=== PATIENT | male | born 1940 | race Caucasian/White ===

== ENCOUNTER 2017-11-18 11:26 | Outpatient (CLI) | payer MEDICARE ==
[2017-11-18 13:25] LABS: #Eosinphils 0.4 thou/uL (0.0-0.7); #Lymphocytes 1.7 thou/uL (1.20-3.40); #Monocytes 0.5 thou/uL (0.11-0.59); #Neutrophils 3.1 thou/uL (1.40-6.50); %Basophils 0.5 % (0.0-1.0); %Eosinophils 7.5 % (0.0-10.0); %Lymphocytes 29.6 % (21.0-51.0); %Monocytes 8.1 % (0.0-10.0); %Neutrophils 54.3 % (42.0-75.0); Hemoglobin 15.1 g/dL (14.0-18.0); Mean Corpuscular HGB CONC 34.4 g/dL (32.0-36.0); Mean Corpuscular Hemoglobin 30.8 pg (27.0-31.0); Mean Corpuscular Volume 89.5 fl (80.0-94.0); Mean Platelet Volume 6.1 fL (7.4-10.4); Platelet Count 161 thou/uL (130-400); RBC Distribution Width 11.3 % (11.5-14.5); White Blood Cell (WBC) Count 5.7 thou/uL (4.8-10.8)
--- NOTE | 2017-11-18 13:42 | RAD ---
CHEST 2 VIEWS: Date: 11/18/17 HISTORY: Preop. COMPARISON: 07/21/07. FINDINGS: Cardiac silhouette and pulmonary vasculature are unremarkable. Mediastinum is midline. There is no co nfluent air space consolidation, pneumothorax, or pleural fluid evident. Degenerative changes involve the thoracic spine on the lateral view. IMPRESSION: No active cardiopulmonary abnormalities are demonstrated. POS: [facility]
[2017-11-18 13:53] LABS: Anion Gap 12 mmol/L (10-20); BUN (Urea Nitrogen) 13 mg/dL (8.4-25.7); Calc. Creatinine Clearance 0 mL/min (70-130); Calcium 9.2 mg/dL (7.8-10.44); Carbon Dioxide 25 mmol/L (23-31); Chloride 105 mmol/L (98-107); Estimated GFR-MDRD 79; Glucose 81 mg/dL (83-110); Potassium 4.4 mmol/L (3.5-5.1); Sodium 138 mmol/L (136-145)
[2017-11-18 17:09] LABS: ALT (SGPT) 16 U/L (8-55); AST (SGOT) 19 U/L (5-34); Albumin 4.2 g/dL (3.4-4.8); Alkaline Phosphatase 77 U/L (40-150); Bilirubin, Total 0.7 mg/dL (0.2-1.2); Globulin 2.5 g/dL (2.4-3.5); Protein, Total 6.7 g/dL (5.8-8.1)
== END 2017-11-18 11:27 | disposition home or self-care (01) ==
LOC: LABBT 11:26
PROVIDERS: ATTEND Specialist
DX: Z01.818 Encounter for other preprocedural examination (principal); K80.20 Calculus of gallbladder without cholecystitis without obstruction
CPT/HCPCS: 71046; 80053; 85025; 93005; 93010

== ENCOUNTER 2017-11-22 08:18 | Day surgery (SDC) | payer MEDICARE ==
[2017-11-18 12:14] VITALS: BMI 25.7
[2017-11-22] MEDS ORDERED: Ketorolac Tromethamine 30 MG/ML VIAL ONE (09:09)
[2017-11-22] MEDS ORDERED: CEFAZOLIN/Water 2 GM/20 ML SYRINGE ONE (09:09)
[2017-11-22] MEDS ORDERED: Fentanyl 100 MCG/2 ML VIAL ONE ×3 (10:47→12:42)
[2017-11-22] MEDS ORDERED: Lidocaine 2% w/Epinephrine 1:200K 20 ML VIAL ONE (10:48)
[2017-11-22] MEDS ORDERED: Bupivacaine 0.25% HCL 30 ML VIAL ONE (10:48)
[2017-11-22] MEDS ORDERED: hydrALAZINE 20 MG/ML VIAL ONE (11:41)
[2017-11-22] MEDS ORDERED: Metoclopramide HCl 10 MG/2 ML VIAL ONE (13:11)
[2017-11-22] MEDS ORDERED: Propofol 200 MG/20 ML VIAL ONE (13:11)
[2017-11-22] MEDS ORDERED: Ondansetron HCl/PF 4 MG/2 ML Vial ONE (13:11)
[2017-11-22] MEDS ORDERED: Glycopyrrolate 0.2 MG/ML 5 ML SYRINGE ONE (13:11)
[2017-11-22] MEDS ORDERED: diphenhydrAMINE 50 MG/ML VIAL ONE (13:11)
[2017-11-22] MEDS ORDERED: Lidocaine 1% PF 5 ML VIAL ONE (13:11)
[2017-11-22] MEDS ORDERED: Dexamethasone 20 MG/5 ML VIAL ONE (13:11)
--- NOTE | 2017-11-22 13:15 | OP ---
DATE OF PROCEDURE: 11/22/2017 PREOPERATIVE DIAGNOSIS: Symptomatic cholelithiasis. POSTOPERATIVE DIAGNOSIS: Symptomatic cholelithiasis. PROCEDURE: Laparoscopic cholecystectomy. SURGEON: Javier Paul M.D. ANESTHESIA: General endotracheal. INDICATIONS: The patient is a 77-year-old white male with symptoms referable to his gallbladder and ultrasound proven cholelithiasis. PROCEDURE IN DETAIL: Informed consent was obtained. The patient was taken to the operating room whe re general endotracheal anesthesia was obtained with the patient in the supine position. The abdomen was prepped with Betadine and draped in the usual sterile fashion. Quarter percent Marcaine with ep inephrine was infiltrated below the umbilicus and a 10 mm infraumbilical incision was created. A Ivan ess needle was passed through this incision into the peritoneal cavity. A pneumoperitoneum was estab lished using carbon dioxide up to a pressure of 15 mmHg. Local anesthetic was infiltrated and three additional 5 mm right upper quadrant incisions were created. Through the mid incision, a 5 mm port w as passed into the peritoneal cavity. The camera was passed through this port and under direct visio n, an 11 port is passed through the infraumbilical incision. The camera was replaced through this port, and under dir ect vision, two additional 5 mm ports were passed through the incisions already created. The gallbladder was grasped and retracted in a cephalad direction. Minimal adhesions were bluntly st ripped away from the apex of the gallbladder, and the apex was retracted laterally and inferiorly. C areful dissection was carried out to the apex of the gallbladder to identify the cystic duct and cyst ic artery. These were each carefully dissected circumferentially. The duct was of normal caliber. Both the duct and the artery were divided between clips leaving two on the side to remain within the abdomen. The gallbladder was then dissected out of the gallbladder fossa using electrocautery and re moved through the infraumbilical port site. The fascia was closed with 0 Vicryl suture and a GraNee needle. The right upper quadrant was inspected and irrigated. All irrigant was aspirated. All port s and instruments were removed under direct vision. Pneumoperitoneum was carefully evacuated. Addit ional local anesthetic was infiltrated into each port site. The skin edges were approximated with 4- 0 Monocryl subcuticular sutures, and Dermabond was placed externally. There were no complications. The patient tolerated the procedure well and was taken to the Recovery Room in stable condition. FINDINGS: The patient's gallbladder was without any pericholecystic inflammation. The duct was smal l and noninflamed. Cholangiogram was not performed. There were no other intra-abdominal abnormaliti es noted. There were no complications. The patient tolerated the procedure well.
== END 2017-11-22 14:00 | disposition home or self-care (01) ==
LOC: SDC 08:18
PROVIDERS: ATTEND Specialist
PROC: 0FT44ZZ Resection of Gallbladder, Percutaneous Endoscopic Approach (ICD-10-PCS; principal; 2017-11-22)
DX: K81.1 Chronic cholecystitis (principal); Z88.7 Allergy status to serum and vaccine; Z98.890 Other specified postprocedural states
CPT/HCPCS: 88304; 96374; J0131; J0360; J1885; J3010; S0020

== ENCOUNTER 2017-11-25 23:04 | Inpatient (IN) | payer MEDICARE ==
[2017-11-25 23:37] LABS: #Eosinphils 0.3 thou/uL (0.0-0.7); #Lymphocytes 1.3 thou/uL (1.20-3.40); #Monocytes 0.6 thou/uL (0.11-0.59); #Neutrophils 4.9 thou/uL (1.40-6.50); %Basophils 0.7 % (0.0-1.0); %Eosinophils 4.2 % (0.0-10.0); %Neutrophils 69.1 % (42.0-75.0); Hemoglobin 14.7 g/dL (14.0-18.0); Mean Corpuscular HGB CONC 35.1 g/dL (32.0-36.0); Mean Corpuscular Hemoglobin 31.7 pg (27.0-31.0); Mean Corpuscular Volume 90.3 fl (80.0-94.0); Mean Platelet Volume 5.9 fL (7.4-10.4); Platelet Count 156 thou/uL (130-400); RBC Distribution Width 11.4 % (11.5-14.5); Red Blood Cell (RBC) Count 4.65 mill/uL (4.70-6.10)
[2017-11-25] MEDS ORDERED: Lidocaine Viscous Sol 2% 15 ml UD Cup ONE (23:50)
[2017-11-25] MEDS ORDERED: Mag-Al 1200 mg/1200 mg/30 ML UDCUP ONE (23:50)
[2017-11-26 00:04] LABS: ALT (SGPT) 23 U/L (8-55); AST (SGOT) 21 U/L (5-34); Alkaline Phosphatase 69 U/L (40-150); Anion Gap 11 mmol/L (10-20); BUN (Urea Nitrogen) 13 mg/dL (8.4-25.7); Bilirubin, Total 0.7 mg/dL (0.2-1.2); Calc. Creatinine Clearance 0 mL/min (70-130); Calcium 9.9 mg/dL (7.8-10.44); Carbon Dioxide 28 mmol/L (23-31); Chloride 102 mmol/L (98-107); Estimated GFR-MDRD 72; Globulin 2.7 g/dL (2.4-3.5); Glucose 113 mg/dL (83-110); Potassium 4.1 mmol/L (3.5-5.1); Protein, Total 6.7 g/dL (5.8-8.1); Sodium 137 mmol/L (136-145)
[2017-11-26 00:10] LABS: CKMB 4.8 ng/mL (0-6.6)
[2017-11-26] MEDS ORDERED: Pantoprazole 40 MG VIAL ONE (00:13)
[2017-11-26] MEDS ORDERED: Morphine 4 MG/ML Carpuject ONE (00:13)
[2017-11-26] MEDS ORDERED: Ondansetron HCl/PF 4 MG/2 ML Vial ONE (00:13)
--- NOTE | 2017-11-26 00:13 | RAD ---
CHEST ONE VIEW 11/25/17 HISTORY: Chest pain. Indigestion. COMPARISON: None. FINDINGS: Portable upright chest: Normal cardiac silhouette. Pulmonary vessels and hilum are normal. No mass. No consolidation. No pneu mothorax or osseous abnormality. IMPRESSION: No acute cardiopulmonary process. POS: [facility]
[2017-11-26 00:27] LABS: Lipase 16 U/L (8-78)
[2017-11-26 00:28] LABS: CK (CPK) 135 U/L (30-200)
[2017-11-26] MEDS ORDERED: Enoxaparin Sodium 80 MG/0.8 ML SYRINGE ONE (00:33)
[2017-11-26] MEDS ORDERED: Nitroglycerin 0.4 MG TAB (25 Tab Bottle) ONE (00:33)
[2017-11-26 03:44] LABS: Troponin I 0.612 ng/mL (< 0.028)
[2017-11-26] MEDS ORDERED: Nitroglycerin 2% Ointment 1 INCH/1 GM Packet ONE (03:49)
[2017-11-26] MEDS ORDERED: Ondansetron ODT 4 MG TAB SL PRN (04:54)
[2017-11-26] MEDS ORDERED: Ondansetron HCl/PF 4 MG/2 ML Vial IVP PRN ×2 (04:54→20:46)
[2017-11-26] MEDS ORDERED: Morphine 5 MG/ML SYRINGE SLOW IVP PRN ×2 (04:55→13:43)
[2017-11-26 05:18] VITALS: BMI 25.7
[2017-11-26] MEDS ORDERED: Nitroglycerin 2% Ointment 1 INCH/1 GM Packet TOP SCH (06:00)
[2017-11-26] MEDS ORDERED: Acetaminophen 325 MG TAB PO PRN (06:30)
[2017-11-26 06:33] LABS: Troponin I 1.357 ng/mL (< 0.028)
[2017-11-26] MEDS: Enoxaparin Sodium 80 MG/0.8 ML SYRINGE SC SCH ×2 (09:54→11:57)
[2017-11-26] MEDS ORDERED: Nitroglycerin 100MG/250ML BOT 250 ML ONE (11:23)
[2017-11-26] MEDS ORDERED: Heparin 10,000 UNITS/1 ML VIAL ONE (11:23)
[2017-11-26] MEDS ORDERED: Iopamidol 370 76% 100 ML VIAL ONE (11:51)
[2017-11-26] MEDS ORDERED: Iopamidol 370 76% 50 ML VIAL FS ONE (11:51)
[2017-11-26] MEDS ORDERED: Verapamil 5 MG/2 ML VIAL ONE (12:43)
[2017-11-26] MEDS ORDERED: TICAGRELOR 90 MG TABLET ONE (12:52)
[2017-11-26] MEDS ORDERED: Zolpidem Tartrate 5 MG TAB PO PRN (13:23)
[2017-11-26] MEDS ORDERED: Nitroglycerin 0.4 MG TAB 1 EACH SL PRN (13:23)
[2017-11-26 14:13] LABS: Troponin I 3.027 ng/mL (< 0.028)
--- NOTE | 2017-11-26 20:14 | HP ---
DATE OF ADMISSION: 11/26/2017 ADMITTING PHYSICIAN: Marco Antonio Remy M.D. CHIEF COMPLAINT: Chest pain. HISTORY OF PRESENT ILLNESS: The patient is a 77-year-old gentleman who presented complaining of a pr essure/pain in the epigastric area. The patient recently had a cholecystectomy done laparoscopically on 11/22/2017. The patient reports that the heaviness and pain started in his chest after he exerted himself. There was a slight relief with the expelling of gas. The patient reports that t he pain intermittently radiates to his neck. He also reports weakness. He denies diaphoresis, short ness of breath, fever, chills, nausea, vomiting. He does report that he has had feelings with GERD i n the past but that this feels somewhat different. REVIEW OF SYSTEMS: The following complete review of systems was negative, unless otherwise mentioned in the HPI or below: Constitutional: Weight loss or gain, sense of well-being, ability to conduct usual activities, exerc ise tolerance. Skin/Breast: Rash, itching, changes in hair growth or loss, nail changes, breast lumps, tenderness, swelling, nipple discharge. Eyes: Vision, double vision, tearing, blind spots, pain. ENT/Mouth: Headaches (location, time of onset, duration, precipitating factors), vertigo, lightheade dness, injury. Vision, double vision, tearing, blind spots, pain, nose bleeding, colds, obstruction, discharge, dental difficulties, gingival bleeding, dentures, neck stiffness, pain, tenderness, masses in thyroid or other areas. Cardiovascular: Precordial pain, substernal distress, palpitations, syncope, dyspnea on exertion, or thopnea, nocturnal paroxysmal dyspnea, edema, cyanosis, hypertension, heart murmurs, varicosities, ph lebitis, claudication. Respiratory: Pain, shortness of breath, wheezing, stridor, cough, hemoptysis, fever or night sweats. Gastrointestinal: Poor appetite, dysphagia, indigestion, abdominal pain, heartburn, eructation, naus ea, vomiting, hematemesis, jaundice, constipation, or diarrhea, abnormal stools (radha-colored, tarry, bloody, greasy, foul smelling), flatulence, hemorrhoids, recent changes in bowel habits. Genitourinary: Urgency, frequency, dysuria, nocturia, hematuria, polyuria, oliguria, unusual (or mejia nge in) color of urine, stones, hesitancy, change in the size of stream, dribbling, acute retention o r incontinence, libido, potency. Musculoskeletal: Pain, swelling, redness or heat of muscles or joints, limitation, of motion, muscul ar weakness, atrophy, cramps. Neurologic/Psychiatric: Convulsions, paralyses, tremor, incoordination, paresthesias, difficulties w ith memory of speech, sensory or motor disturbances, or muscular coordination (ataxia, tremor), emoti onal problems, anxiety, depression, previous psychiatric care, unusual perceptions, hallucinations. Allergy/Immunologic: Skin rash, anemia, bleeding tendency, polydipsia, polyuria, intolerance to heat or cold. PAST MEDICAL HISTORY: No significant past medical history. PAST SURGICAL HISTORY: Significant for right shoulder surgery and a laparoscopic cholecystectomy. PSYCHIATRIC HISTORY: No previous psychiatric history. SOCIAL HISTORY: Denies alcohol, denies drug, stopped smoking over 20 years ago. HOME MEDICATIONS: Include Ambien 10 mg at bedtime. DRUG ALLERGIES: He is allergic to PNEUMOCOCCAL VACCINE and INFLUENZA VACCINE. FAMILY HISTORY: Reviewed and noncontributory. PHYSICAL EXAMINATION: VITAL SIGNS: Blood pressure 119/62, pulse 48, respirations 18, temperature 98.2, pain 0/10, satting 97% on room air. GENERAL: He is in no acute distress, very pleasant, cooperative. HEAD: Normocephalic, atraumatic. EYES: PERRL. Extraocular muscles are intact. ENT: Ears normal. Mouth normal. Nose exam normal. NECK: Supple, full range of motion. Trachea midline. CHEST: Clear to auscultation, no rhonchi, no wheezing. CARDIOVASCULAR: Regular rate and rhythm, no murmurs, regurg, or gallops. ABDOMEN: Nontender, nondistended. Positive bowel sounds. EXTREMITIES: No clubbing, cyanosis, or edema. SKIN: There are healing surgical scars in the abdominal area, otherwise skin is warm, dry, normal in color. NEUROLOGIC: Full range of motion of all extremities. Cranial nerves II through XII grossly intact. LABORATORY DATA AND IMAGES: CBC shows a white count of 7.0, hemoglobin 14.7, hematocrit 42.0, platel ets 156. Coag studies: Clotting time of 268. Chemistry: Sodium 137, potassium 4.1, chloride 102, CO2 28, BUN 13, creatinine 1.00, glucose 113, calcium 9.9, AST 21, ALT 23, alkaline phosphatase 69. CK 135, CK-MB 4.8, troponin I first measurement 0.26, second study 0.61, third study 1.35, and the fo urth study 3.02. Lipase 16. Chest x-ray shows no acute cardiopulmonary process. ASSESSMENT AND PLAN: 1. Skk-[id number]-ewsnmak elevation myocardial infarction. 2. Coronary artery disease, status post percutaneous transluminal coronary angioplasty with stent. PLAN: The patient admitted to telemetry. Cardiology service has seen the patient and performed an a ngiogram. A stent was placed in an obtuse marginal coronary artery. The patient reportedly is sympt om-free but will follow up with Cardiology for additional treatment. We will provide supportive ther apy during his stay here and follow per Cardiology.
[2017-11-26 20:24] LABS: Troponin I 3.136 ng/mL (< 0.028)
[2017-11-26] MEDS ORDERED: Ondansetron ODT 4 MG TAB PO PRN (20:46)
[2017-11-26] MEDS ORDERED: Mag-Al 1200 mg/1200 mg/30 ML UDCUP PO PRN (20:46)
[2017-11-26] MEDS ORDERED: Calcium Carbonate 500 MG ChewTAB PO PRN (20:46)
[2017-11-26] MEDS ORDERED: Atorvastatin Calcium 20 MG TAB PO SCH (21:00)
[2017-11-26] MEDS: Carvedilol 3.125 MG TAB PO SCH (21:16)
[2017-11-26] MEDS: TICAGRELOR 90 MG TABLET PO SCH (21:16)
--- NOTE | 2017-11-27 01:20 | CON ---
DATE OF CONSULTATION: 11/26/2017 INDICATION FOR CONSULTATION: This is a 77-year-old patient with new-onset chest pain and abnormal ca rdiac enzymes. HISTORY OF PRESENT ILLNESS: This is a very pleasant 77-year-old gentleman who presented to the emerg ency room earlier today after he had been having some chest discomfort yesterday evening. He said th e chest pain radiated to his jaw. He originally thought it was indigestion. He then noticed that he did try to ambulate somewhat; with ambulation, the pain worsened. He presented to the emergency dima after calling the surgical department after he had recently undergone, I believe on Tuesday, cholec ystectomy and thought perhaps he was just having indigestion. On arrival to the emergency room, he w as found to have a right bundle-branch block with bradycardia. His cardiac enzymes were already abno rmal at 0.026 and now increased up to 0.612 and then up to 1.357 compatible with a non-ST segment shayne vation myocardial infarction. He did have further chest pain this morning when he was in the bed guillermina und 9:15 a.m. and with minimal exertion, he developed chest pain again. PAST MEDICAL HISTORY: Significant for hypercholesterolemia. He has had a cholecystectomy. He has r efused to have medications in the past. He has had a colon polypectomy. He has had a right rotator cuff repair. He has had a right cataract surgery. He has history of nephrolithiasis, history of gas troesophageal reflux disease. SOCIAL HISTORY: He has smoked in the past about a pack a day for 40 years and stopped about 20 years ago. Otherwise, his social history is unremarkable. He has no alcohol use. FAMILY HISTORY: Unremarkable for any early heart disease. ALLERGIES: He is allergic to PNEUMONIA and FLU SHOTS and also NEXIUM. REVIEW OF SYSTEMS: A 12-point review of systems is unremarkable except for arthritis of the left kne e, dyspepsia and what is noted. MEDICATIONS: In the emergency room, he was given nitroglycerin, Lovenox, morphine, aspirin, and perh aps I believe looks like he was given some other medication. PHYSICAL EXAMINATION: GENERAL: Reveals a well-developed, well-nourished gentleman who is in no acute distress at this time . VITAL SIGNS: Blood pressure is 108/65, heart rate is 52 and regular. He is afebrile. Respiratory r ate is 20. HEENT: Reveals the head to be normocephalic, atraumatic. Carotid pulses are present. I did not hea r any bruits. CHEST: Clear to auscultation without rales, rhonchi or wheezing. CARDIOVASCULAR: Heart sounds are very difficult to hear, very distant sounds. I did not hear any si gnificant murmurs, heaves, thrills, bruits or rubs. ABDOMEN: Soft and nontender. Positive bowel sounds are present. EXTREMITIES: Show no clubbing, cyanosis or edema. He has portal incision that is actually in the ab dominal area which has previous arthroscopic cholecystectomy. EXTREMITIES: Show no clubbing, cyanosis or edema. NEUROLOGIC: Patient is fully intact. He has normal strength, normal tone. No abnormalities were no gonzalez. SKIN: Warm and dry at this time. Please note also in the emergency room, he was given the sublingual nitroglycerin as well as the Love nox and morphine and Protonix. EKG shows a right bundle-branch block with a sinus bradycardia, heart rate in the 50s. IMPRESSION AND PLAN: Non-ST segment elevation myocardial infarction in a 77-year-old gentleman who r ecently underwent arthroscopic cholecystectomy. He continued to have episodes of chest discomfort. I would advise him to undergo urgent cardiac catheterization to evaluate his coronary artery status. I have explained the procedure and the risks to him to include bleeding, infection, possibly a myoca rdial infarction, cerebrovascular accident, renal insufficiency, allergic contrast reaction and even the possibility of . He understands and agrees to proceed. We will plan for urgent cardiac cat heterization this morning since the patient continues to have increasing cardiac enzymes compatible w ith a non-ST elevation myocardial infarction and continues to have episodes of chest discomfort which he rates at least 6/10.
[2017-11-27 05:38] LABS: #Eosinphils 0.2 thou/uL (0.0-0.7); #Monocytes 0.4 thou/uL (0.11-0.59); #Neutrophils 3.4 thou/uL (1.40-6.50); %Basophils 0.3 % (0.0-1.0); %Eosinophils 4.3 % (0.0-10.0); %Lymphocytes 19.3 % (21.0-51.0); %Monocytes 7.8 % (0.0-10.0); %Neutrophils 68.3 % (42.0-75.0); Mean Corpuscular HGB CONC 35.6 g/dL (32.0-36.0); Mean Corpuscular Hemoglobin 32.2 pg (27.0-31.0); Mean Corpuscular Volume 90.6 fl (80.0-94.0); Mean Platelet Volume 6.4 fL (7.4-10.4); Platelet Count 135 thou/uL (130-400); RBC Distribution Width 11.4 % (11.5-14.5); Red Blood Cell (RBC) Count 4.02 mill/uL (4.70-6.10); White Blood Cell (WBC) Count 4.9 thou/uL (4.8-10.8)
[2017-11-27 05:50] LABS: ALT (SGPT) 18 U/L (8-55); AST (SGOT) 29 U/L (5-34); Albumin 3.6 g/dL (3.4-4.8); Alkaline Phosphatase 56 U/L (40-150); Anion Gap 9 mmol/L (10-20); BUN (Urea Nitrogen) 11 mg/dL (8.4-25.7); Calc. Creatinine Clearance 77 mL/min (70-130); Calcium 8.9 mg/dL (7.8-10.44); Carbon Dioxide 26 mmol/L (23-31); Chloride 105 mmol/L (98-107); Estimated GFR-MDRD 78; Globulin 2.3 g/dL (2.4-3.5); Glucose 97 mg/dL (83-110); Potassium 4.1 mmol/L (3.5-5.1); Protein, Total 5.9 g/dL (5.8-8.1); Sodium 136 mmol/L (136-145)
[2017-11-27] MEDS ORDERED: Lisinopril 2.5 MG TAB PO SCH (09:00)
[2017-11-27] MEDS: Carvedilol 3.125 MG TAB PO SCH (09:03)
[2017-11-27] MEDS: TICAGRELOR 90 MG TABLET PO SCH (09:06)
[2017-11-27 12:13] VITALS: TEMP 98.2
--- NOTE | 2017-11-27 12:25 | PDOC.CTH ---
<Beverly Moreno - Last Filed: 11/27/17 12:21> Cardiology Progress Note - Subjective The pt seen and examined. No overnight events. No cardiac complaints. He walked with PT without any difficulties. - Objective Vital Signs Temp Pulse Resp BP Pulse Ox 11/27/17 12:00 98.2 F 58 L 16 121/61 98 11/27/17 08:00 97.6 F 69 18 136/65 95 11/27/17 03:27 100.3 F H 60 17 141/63 H 94 L Weight 180 lb 4 oz 11/26/17 11/27/17 11/28/17 06:59 06:59 06:59 Intake Total 0 240 Output Total 150 775 Balance -150 -535 - Physical Examination General/Neuro: alert & oriented x3 Lungs: CTA Heart: RRR Abdomen: soft Extremities: other: (No edema; no bleeding, hemamtoma, or oozing from Lt wrist) - Telemetry Telemetry Rhythm: SR - Labs Result Diagrams: 11/27/17 05:03 11/27/17 05:03 Troponin/CKMB CK-MB (CK-2) 4.8 ng/mL (0-6.6) 11/25/17 23:28 Troponin I 3.136 ng/mL (< 0.028) H* 11/26/17 19:44 - Assessment/Plan 1. NSTEMI w/ S/p PCI x1 to OM1 - stable; on ANIL, BBlocker, ASA 81mg, Lipitor, and Brilinta 90mg BID; sample of Brilinta given to the pt 2. Hyperlipidemia - on Statin 3. GERD - stable 4. Ex-smoker, quit in 1997 MAR reviewed * From cardiac standpoint, the pt is stable to d/c home; The pt will f/u with Dr Martínez' office within 1-2 wks for another cardiac cath. Instructed to call/ visit the office/ER for any cardiac symptoms. * The medication at Discharge: Coreg 3.125mg BID, Lisinopril 2.5mg QD, ASA 81mg QD, Lipitor 20mg QD, Brilinta 90mg BID Review of Systems - Review of Systems Constitutional: reports: no symptoms reported EENTM: reports: no symptoms reported Respiratory: reports: no symptoms reported Cardiac (ROS): reports: no symptoms reported ABD/GI: reports: no symptoms reported : reports: no symptoms reported Musculoskeletal: reports: no symptoms reported Skin: reports: no symptoms reported <Janusz Martínez - Last Filed: 11/28/17 09:46> Cardiology Progress Note - Objective Weight 180 lb 4 oz 11/27/17 11/28/17 11/29/17 06:59 06:59 06:59 Intake Total 240 Output Total 775 Balance -535 - Labs Result Diagrams: 11/27/17 05:03 11/27/17 05:03 Troponin/CKMB CK-MB (CK-2) 4.8 ng/mL (0-6.6) 11/25/17 23:28 Troponin I 3.136 ng/mL (< 0.028) H* 11/26/17 19:44 - Assessment/Plan Pt. seen and eval. I agree with the A/P by the YAM CURER. Plan for further intervention to the diag and possibly the ramus in 2-3 weeks.
[2017-11-27 12:54] VITALS: BP 138/59
--- NOTE | 2017-11-27 20:50 | DIS ---
DATE OF ADMISSION: 11/26/2017. DATE OF DISCHARGE: 11/27/2017. PRIMARY DISCHARGE DIAGNOSES: 1. Rqy-UR-ivopbujic myocardial infarction. 2. Coronary artery disease. 3. Hypertension. HOSPITAL COURSE: The patient is a 77-year-old gentleman that had presented complaining of epigastric chest pain. The patient was noted to have elevated troponins beyond the indeterminate range. It wa s felt that he was undergoing a fhb-[id number]-qdrdqegw myocardial infarction. He was immediately taken to [facility], where he was treated by Dr. Maynor Martínez. Successful PCI with insertion of a drug-eluting stent was performed. This was placed in the proximal first obtuse marginal coronary artery. The pat ient's ejection fraction was 55%. There were some inferior hypokinesis. DISCHARGE DISPOSITION: To home with home health. DISCHARGE DIET: Cardiac healthy. DISCHARGE MEDICATIONS: The patient was discharged on lisinopril 2.5 mg every day, Coreg 3.125 mg b.i .d., aspirin 81 mg every day, Lipitor 20 mg p.o. at bedtime, Brilinta 90 mg b.i.d. DISCHARGE ACTIVITY: As tolerated. PHYSICAL EXAMINATION: GENERAL: No acute distress. HEAD: Normocephalic, atraumatic. EYES: PERRL. Extraocular muscles intact. LUNGS: Clear to auscultation. CARDIAC: Regular rate and rhythm. ABDOMEN: Nontender, nondistended. EXTREMITIES: No clubbing, cyanosis, or edema. CONSULTANTS: Dr. Martínez, Cardiology. PROCEDURE: Angiogram. FOLLOWUP: The patient is to follow up with Dr. Martínez within 2 weeks. The patient is also to follow u p in cardiac rehabilitation and to see his PCP within 1 week.
--- NOTE | 2017-12-03 13:44 | EKG ---
Test Reason : Blood Pressure : / mmHG Vent. Rate : 054 BPM Atrial Rate : 054 BPM P-R Int : 202 ms QRS Dur : 164 ms QT Int : 444 ms P-R-T Axes : 079 046 044 degrees QTc Int : 421 ms Sinus bradycardia Right bundle branch block Abnormal ECG Confirmed by GUNNER AGUILAR ([id number]), mapping editor PARVEZ ROCHA ([id number]) on 12/03/2017 1:44:10 PM Referred By: Confirmed By:GUNNER AGUILAR
== END 2017-11-27 16:16 | disposition home health service (06) | DRG 247 ==
LOC: ERS 23:04 → 2NO 11-26 04:29
PROVIDERS: ADMIT Hospitalist; ATTEND Hospitalist
PROC: 4A023N7 Measurement of Cardiac Sampling and Pressure, Left Heart, Percutaneous Approach (ICD-10-PCS; principal; 2017-11-26)
PROC: 027034Z Dilation of Coronary Artery, One Artery with Drug-eluting Intraluminal Device, Percutaneous Approach (ICD-10-PCS; 2017-11-26)
PROC: B2111ZZ Fluoroscopy of Multiple Coronary Arteries using Low Osmolar Contrast (ICD-10-PCS; 2017-11-26)
PROC: B2151ZZ Fluoroscopy of Left Heart using Low Osmolar Contrast (ICD-10-PCS; 2017-11-26)
DX: I21.4 Non-ST elevation (NSTEMI) myocardial infarction (principal); I45.10 Unspecified right bundle-branch block; E78.00 Pure hypercholesterolemia, unspecified; I25.119 Atherosclerotic heart disease of native coronary artery with unspecified angina pectoris; Z90.49 Acquired absence of other specified parts of digestive tract; Z88.7 Allergy status to serum and vaccine; K21.9 Gastro-esophageal reflux disease without esophagitis; Z87.891 Personal history of nicotine dependence; M17.12 Unilateral primary osteoarthritis, left knee
CPT/HCPCS: 36415; 71045; 80053; 82550; 82553; 83690; 84484; 85025; 85347; 92928; 93005; 93010; 93458; 93798; 94760; 96361; 96372; 96374; 96375; J2270; A4216; C1725; C1769; C1874; C1887; C9113; C9600; J1644; J1650; J2405

== ENCOUNTER 2018-07-25 10:50 | Outpatient (CLI) | payer MEDICARE ==
--- NOTE | 2018-07-25 14:14 | CT ---
CT ANGIOGRAM NECK: HISTORY: Carotid bruit. Evaluate for stenosis. COMPARISON: None. TECHNIQUE: CT angiogram of the neck is performed in the axial plane. Three-dimensional reformatted images are s ubmitted for interpretation. FINDINGS: The visualized brain parenchyma is unremarkable. The calvarium is intact. Adequate aeration of the visualized sinuses and mastoid air cells. Bilateral globes are intact. The retrobulbar fat is preserved. Symmetric attenuation of the optic n erves and ocular rectus muscles. The right ocular lens implant is appropriately located. [place] left ocular lens is unremarkable. The aerodigestive tract is patent. No mucosal abnormality. Midline fatty [place] of the tongue is pre served. The epiglottis has a normal caliber. Pre-epiglottic fat is preserved. No prevertebral soft tissue swelling. Symmetric attenuation of the parotid and submandibular glands. The sternocleidomastoid muscles are u nremarkable. No evidence of lymphadenopathy by size criteria. The upper mediastinum is unremarkable. Emphysematous changes in the lung apices. Cervical spine vertebral body height is maintained. There is no fracture. Anterolisthesis of C3 upo n C4 and retrolisthesis of C5 upon C6. There are varying degrees of central canal stenosis and neura l foraminal narrowing on the basis of degenerative change. Moderate central canal stenosis at C4-C5, C5-C6, and C6-C7. CT ANGIOGRAM: The aortic arch has an overall normal caliber. RIGHT CAROTID: The right carotid artery origin, the carotid bifurcation, and the internal carotid ar rosita have appropriate enhancement and luminal diameter. Minimal atherosclerosis in the right carotid bifurcation. There is a small ulcerative plaque along the posterolateral aspect of the proximal righ t internal carotid artery, measuring 0.3 cm. Mild irregularity involving the proximal right internal carotid artery is noted. There is no significant stenosis based upon NASCET criteria. LEFT CAROTID: The left carotid artery origin has appropriate enhancement and luminal diameter. Ther e is atherosclerotic disease without significant stenosis in the left carotid bifurcation. The left internal carotid artery has appropriate enhancement and luminal diameter. There is no significant st enosis based upon NASCET criteria. Bilateral subclavian arteries are patent. Bilateral cervical vertebral arteries are patent throughou t their course in the neck. The vertebral arteries are essentially co-dominant. IMPRESSION: 1. Focal ulceration involving the posterolateral proximal right internal carotid artery. Consider a cardiovascular surgical consultation. 2. No evidence of significant stenosis based upon NASCET criteria. POS: [facility]
== END 2018-07-25 10:51 | disposition home or self-care (01) ==
LOC: BICCT 10:50
PROVIDERS: ATTEND Internal Medicine Cardiovascular Disease
DX: I25.10 Atherosclerotic heart disease of native coronary artery without angina pectoris (principal); I77.89 Other specified disorders of arteries and arterioles
CPT/HCPCS: 70498; 82565

== ENCOUNTER 2020-01-04 12:20 | Outpatient (CLI) | payer MEDICARE ==
--- NOTE | 2020-01-04 14:24 | MRI ---
LEFT KNEE MRI WITHOUT IV CONTRAST: HISTORY: Left knee pain. FINDINGS: Multiplanar, multisequence MRI examination of the left knee is performed. There is abnormal oblique and linear horizontal high signal involving the medial meniscus from near the posterior root into the mid body, evidence for a somewhat complex tear including a horizontal component. The lateral menisc us appears unremarkable. There is some minimal to moderate fluid in the suprapatellar recess. There is evidence for some irregular patellar cartilage loss, evidence for chondromalacia patella with claudia e full-thickness or near full-thickness fissures. The lateral meniscus appears unremarkable. The an terior and posterior cruciate ligaments, collateral ligament complexes, and quadriceps and patellar t endons appear intact. There is flattening of the superior trochlear groove as well as a somewhat yashira ngated flattened lateral patellar facet, evidence for some patellar trochlear dysplasia with borderli ne lateral patellar subluxation. No evidence for significant abnormal fat stranding within the super ior aspect of Hoffa's fat that would suggest patellar tendon lateral femoral condyle friction syndrom e. IMPRESSION: Complex medial meniscal tear. 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 Some distention of the suprapatellar recess. POS: [facility]
== END 2020-01-04 12:21 | disposition home or self-care (01) ==
LOC: BICMRI 12:20
PROVIDERS: ATTEND Orthopaedic Surgery
DX: M25.562 Pain in left knee (principal); S83.232A Complex tear of medial meniscus, current injury, left knee, initial encounter; M22.42 Chondromalacia patellae, left knee; M22.8X2 Other disorders of patella, left knee

== ENCOUNTER 2022-05-21 11:14 | Outpatient (CLI) | payer MEDICARE | END 2022-05-21 11:15 | disposition home or self-care (01) | LOC: CTENTCT 11:14 | PROVIDERS: ATTEND Student in an Organized Health Care Education/Training Program | DX: J32.9 Chronic sinusitis, unspecified (principal) | CPT/HCPCS: 70486 ==

== ENCOUNTER 2022-10-24 15:25 | Emergency (ER) | payer MEDICARE, OTHER | END 2022-10-24 16:55 | disposition home or self-care (01) | LOC: ERS 15:25 | DX: H66.91 Otitis media, unspecified, right ear (principal); H73.91 Unspecified disorder of tympanic membrane, right ear; Z87.891 Personal history of nicotine dependence | CPT/HCPCS: 99282 ==

== ENCOUNTER 2023-07-08 09:20 | Outpatient (CLI) | payer OTHER ==
[2023-07-08 12:01] LABS: #Eosinphils 0.4 10x3/uL (0.0-0.5); #Monocytes 0.5 10x3/uL (0.0-1.1); #Neutrophils 4.2 10x3/uL (1.5-8.4); %Basophils 0.6 % (0.0-2.0); %Eosinophils 5.7 % (0.0-6.0); %Lymphocytes 20.5 % (18.0-47.0); %Monocytes 7.9 % (0.0-10.0); %Neutrophils 64.8 % (40.0-75.0); Hematocrit 43.6 % (38.8-50.0); Hemoglobin 14.8 g/dL (13.5-17.5); Mean Corpuscular HGB CONC 33.9 g/dL (32.0-36.0); Mean Corpuscular Hemoglobin 30.3 pg (27.0-33.0); Mean Corpuscular Volume 89.2 fl (81.2-95.1); Mean Platelet Volume 9.4 fl (7.4-10.4); Platelet Count 160 10x3/uL (150-450); RBC Distribution Width 12.5 % (11.5-14.5); Red Blood Cell (RBC) Count 4.89 10x6/uL (4.32-5.72); White Blood Cell (WBC) Count 6.5 10x3/uL (3.5-10.5)
[2023-07-08 12:49] LABS: Anion Gap 15 mmol/L (10-20); BUN (Urea Nitrogen) 19 mg/dL (8.4-25.7); Calc. Creatinine Clearance 0 mL/min (70-130); Calcium 9.1 mg/dL (7.8-10.44); Carbon Dioxide 21 mmol/L (23-31); Chloride 107 mmol/L (98-107); Estimated GFR 56; Glucose 90 mg/dL (83-110); Potassium 4.8 mmol/L (3.5-5.1); Sodium 138 mmol/L (136-145)
== END 2023-07-08 09:21 | disposition home or self-care (01) ==
LOC: LABBT 09:20
PROVIDERS: ATTEND Orthopaedic Surgery
DX: Z01.818 Encounter for other preprocedural examination (principal); S83.242A Other tear of medial meniscus, current injury, left knee, initial encounter
CPT/HCPCS: 80048; 85025; 93005; 93010

== ENCOUNTER 2023-07-13 09:19 | Day surgery (SDC) | payer OTHER ==
[2023-07-08 10:23] VITALS: BMI 28.4
[2023-07-13] MEDS ORDERED: CEFAZOLIN 2 GM VIAL ONE (10:19)
[2023-07-13] MEDS ORDERED: Sodium Chloride 0.9% 100 ML ONE (10:19)
[2023-07-13] MEDS ORDERED: PROPOFOL 20 ML ONE (10:22)
[2023-07-13] MEDS ORDERED: Lidocaine 2% PF 5 ML VIAL ONE (10:22)
[2023-07-13] MEDS ORDERED: Bupivacaine PF 0.5% 30 ML VIAL ONE (10:22)
[2023-07-13] MEDS ORDERED: Glycopyrrolate 0.2 MG/ML 5 ML SYRINGE ONE (11:01)
[2023-07-13] MEDS ORDERED: Ondansetron PF 4 MG/2 ML Vial ONE ×2 (11:01→11:27)
[2023-07-13] MEDS ORDERED: Lidocaine 1% PF 5 ML VIAL ONE (11:01)
[2023-07-13] MEDS ORDERED: Bupivacaine HCl 0.5%/Epinephrine 1:200,000/PF 30 ml Vial ONE (11:01)
[2023-07-13] MEDS ORDERED: PROPOFOL 200 MG/20 ML VIAL ONE (11:01)
[2023-07-13] MEDS ORDERED: fentaNYL 50 mcg/mL 1 mL Vial ONE (11:27)
[2023-07-13] MEDS ORDERED: HYDROcodone/Acetaminophen 5/325 mg Tablet ONE (12:45)
== END 2023-07-13 14:17 | disposition home or self-care (01) ==
LOC: SDC 09:19
PROVIDERS: ATTEND Orthopaedic Surgery
PROC: 0SBD4ZZ Excision of Left Knee Joint, Percutaneous Endoscopic Approach (ICD-10-PCS; principal; 2023-07-13)
DX: S83.207A Unspecified tear of unspecified meniscus, current injury, left knee, initial encounter (principal); I25.10 Atherosclerotic heart disease of native coronary artery without angina pectoris; E78.5 Hyperlipidemia, unspecified; J44.9 Chronic obstructive pulmonary disease, unspecified; M19.90 Unspecified osteoarthritis, unspecified site; G47.00 Insomnia, unspecified; H46.9 Unspecified optic neuritis; Z98.890 Other specified postprocedural states; Z90.49 Acquired absence of other specified parts of digestive tract; Z87.891 Personal history of nicotine dependence; Z88.8 Allergy status to other drugs, medicaments and biological substances; Z79.82 Long term (current) use of aspirin; Z88.5 Allergy status to narcotic agent; Z79.899 Other long term (current) drug therapy; X58.XXXA Exposure to other specified factors, initial encounter
CPT/HCPCS: 29881; 97116; J3010; J2001; J2405; J2704; J3490; S0020

== ENCOUNTER 2025-08-02 10:48 | Outpatient (CLI) | payer OTHER | END 2025-08-02 10:49 | disposition home or self-care (01) | LOC: SCSRAD 10:48 | PROVIDERS: ATTEND Family Medicine | DX: R06.09 Other forms of dyspnea (principal); M54.6 Pain in thoracic spine | CPT/HCPCS: 36415; 71046; 80053; 83690; 85025; 85379 ==

== ENCOUNTER 2025-08-13 12:48 | Inpatient (IN) | payer OTHER ==
[~2025-08-13 12:48] MED LIST: Iopamidol-370 76% 500 ML MDV (1 ML CHARGE) ONE
[2025-08-13 14:00] LABS: #Basophils 0.08 10x3/uL (0.0-0.2); #Eosinophils 0.40 10x3/uL (0.0-0.7); #Monocytes 0.80 10x3/uL (0.11-0.59); #Neutrophils 8.47 10x3/uL (1.40-6.50); %Basophils 0.6 % (0.0-1.0); %Eosinophils 3.2 % (0.0-10.0); %Lymphocytes 21.3 % (21.0-51.0); %Monocytes 6.4 % (0.0-10.0); %Neutrophils 67.9 % (42.0-75.0); Hematocrit 46.8 % (42.0-52.0); Hemoglobin 14.9 g/dL (14.0-18.0); Mean Corpuscular Hemoglobin 29.4 pg (27.0-31.0); Mean Corpuscular Volume 92.5 fL (78.0-98.0); Platelet Count 188 10x3/uL (130-400); Red Blood Cell (RBC) Count 5.06 mill/uL (4.70-6.10); White Blood Cell (WBC) Count 12.47 10x3/uL (4.8-10.8)
[2025-08-13 14:33] LABS: ALT (SGPT) 19 U/L (Less than 45); AST (SGOT) 26 U/L (11-34); Albumin 4.5 g/dL (3.1-4.5); Alkaline Phosphatase 83 U/L (40-110); Anion Gap 17 mmol/L (10-20); BUN (Urea Nitrogen) 35 mg/dL (8.4-25.7); Bilirubin, Total 1.0 mg/dL (0.3-1.2); Calc. Creatinine Clearance 0 mL/min (70-130); Calcium 9.5 mg/dL (7.8-10.44); Carbon Dioxide 24 mmol/L (23-31); Chloride 105 mmol/L (98-107); Globulin 3.3 g/dL (2.4-3.5); Glucose 138 mg/dL (83-110); Potassium 5.2 mmol/L (3.5-5.1); Sodium 141 mmol/L (136-145)
[2025-08-13] MEDS ORDERED: CEFAZOLIN 2 GM VIAL ONE (15:31)
[2025-08-13] MEDS ORDERED: CEFAZOLIN 1 GM VIAL ONE (15:31)
[2025-08-13] MEDS ORDERED: Lidocaine 1% (PF) 30 ML VIAL ONE (15:54)
[2025-08-13] MEDS ORDERED: EPINEPHrine 1 MG/10 ML Abboject SYRINGE ONE (17:22)
[2025-08-13 18:03] LABS: Magnesium 2.4 mg/dL (1.6-2.6)
[2025-08-13 18:31] VITALS: BMI 28.5
[2025-08-13 20:49] LABS: Potassium 5.2 mmol/L (3.5-5.1)
[2025-08-13] MEDS: Rosuvastatin 20 MG TAB PO SCH (20:54)
[2025-08-13] MEDS: Carvedilol 3.125 MG TAB PO SCH (20:54)
[2025-08-13] MEDS: Gabapentin 400 MG CAP PO SCH (23:26)
[2025-08-14 05:16] LABS: Anion Gap 9 mmol/L (10-20); BUN (Urea Nitrogen) 37 mg/dL (8.4-25.7); Calc. Creatinine Clearance 46 mL/min (70-130); Calcium 8.6 mg/dL (7.8-10.44); Carbon Dioxide 24 mmol/L (23-31); Chloride 108 mmol/L (98-107); Glucose 121 mg/dL (83-110); Potassium 4.0 mmol/L (3.5-5.1); Sodium 137 mmol/L (136-145)
[2025-08-14] MEDS: Gabapentin 400 MG CAP PO SCH ×2 (09:06→21:04)
[2025-08-14] MEDS: Aspirin Chewable 81 MG TAB PO SCH (09:06)
[2025-08-14] MEDS ORDERED: hydrALAZINE 20 MG/ML VIAL SLOW IVP PRN (14:46)
[2025-08-14] MEDS: Acetaminophen 325 MG TAB PO PRN (16:48)
[2025-08-14] MEDS: Carvedilol 6.25 MG TAB PO SCH (20:30)
[2025-08-15 05:55] LABS: #Basophils 0.03 10x3/uL (0.0-0.2); #Eosinophils 0.26 10x3/uL (0.0-0.7); #Monocytes 0.47 10x3/uL (0.11-0.59); #Neutrophils 4.64 10x3/uL (1.40-6.50); %Basophils 0.5 % (0.0-1.0); %Eosinophils 4.0 % (0.0-10.0); %Lymphocytes 16.4 % (21.0-51.0); %Monocytes 7.3 % (0.0-10.0); %Neutrophils 71.6 % (42.0-75.0); Anion Gap 11 mmol/L (10-20); BUN (Urea Nitrogen) 23 mg/dL (8.4-25.7); Calc. Creatinine Clearance 65 mL/min (70-130); Calcium 8.6 mg/dL (7.8-10.44); Carbon Dioxide 24 mmol/L (23-31); Chloride 111 mmol/L (98-107); Glucose 100 mg/dL (83-110); Hematocrit 37.5 % (42.0-52.0); Hemoglobin 12.7 g/dL (14.0-18.0); Mean Corpuscular Hemoglobin 30.4 pg (27.0-31.0); Mean Corpuscular Volume 89.7 fL (78.0-98.0); Platelet Count 118 10x3/uL (130-400); Potassium 4.0 mmol/L (3.5-5.1); Red Blood Cell (RBC) Count 4.18 mill/uL (4.70-6.10); Sodium 142 mmol/L (136-145); White Blood Cell (WBC) Count 6.47 10x3/uL (4.8-10.8)
[2025-08-15 06:12] LABS: Platelet Adequacy Comment Platelets Decreased; RBC Morphology Within Normal Limits
[2025-08-15 11:34] VITALS: BP 153/72; TEMP 98.7
== END 2025-08-15 13:33 | disposition home or self-care (01) | DRG 243 ==
LOC: ERS 12:48 → CCL 16:28 → 2NO 18:11
PROVIDERS: ADMIT Internal Medicine Cardiovascular Disease; ATTEND Internal Medicine Cardiovascular Disease
PROC: 0JH606Z Insertion of Pacemaker, Dual Chamber into Chest Subcutaneous Tissue and Fascia, Open Approach (ICD-10-PCS; principal; 2025-08-13)
PROC: 02H63JZ Insertion of Pacemaker Lead into Right Atrium, Percutaneous Approach (ICD-10-PCS; 2025-08-13)
PROC: 02HK3JZ Insertion of Pacemaker Lead into Right Ventricle, Percutaneous Approach (ICD-10-PCS; 2025-08-13)
PROC: 3E03329 Introduction of Other Anti-infective into Peripheral Vein, Percutaneous Approach (ICD-10-PCS; 2025-08-13)
PROC: 3E033XZ Introduction of Vasopressor into Peripheral Vein, Percutaneous Approach (ICD-10-PCS; 2025-08-13)
DX: I44.2 Atrioventricular block, complete (principal); N17.9 Acute kidney failure, unspecified; R65.10 Systemic inflammatory response syndrome (SIRS) of non-infectious origin without acute organ dysfunction; I25.10 Atherosclerotic heart disease of native coronary artery without angina pectoris; Z98.890 Other specified postprocedural states; I10 Essential (primary) hypertension; D64.9 Anemia, unspecified; Z88.7 Allergy status to serum and vaccine; Z72.0 Tobacco use; G62.9 Polyneuropathy, unspecified; Z79.899 Other long term (current) drug therapy; E78.5 Hyperlipidemia, unspecified; R55 Syncope and collapse; E87.5 Hyperkalemia; S82.4 Fracture of shaft of fibula; J44.9 Chronic obstructive pulmonary disease, unspecified; Z79.82 Long term (current) use of aspirin
CPT/HCPCS: 33208; 36415; 71045; 71275; 74174; 80048; 80053; 83690; 83735; 84100; 84484; 85025; 93005; 93010; 96374; 96375; 99292; C1785; C1898; J0165; J0461; J0690; J1580; J2003; J2250; J3010; J7120; Q9967